=== PATIENT | female | born 1995 | race Caucasian/White ===

== ENCOUNTER 2017-10-07 20:56 | Emergency (ER) | payer OTHER ==
[~2017-10-07] VITALS: Ht 170.2 cm; Wt 48.9 kg
[2017-10-07] MEDS ORDERED: ZOFRAN ODT4 MG PO (22:01)
[2017-10-07] MEDS ORDERED: BENTYL10 MG PO (22:01)
[2017-10-07 22:38] VITALS: BP 137/90
== END 2017-10-07 22:39 | disposition home or self-care (01) ==
LOC: EME 20:56
DX: B34.9 Viral infection, unspecified (principal); R11.2 Nausea with vomiting, unspecified; F41.9 Anxiety disorder, unspecified; Z87.891 Personal history of nicotine dependence; Z91.040 Latex allergy status
CPT/HCPCS: 99281; 99284; J2405; J7030